=== PATIENT | male | born 1950 | race Caucasian/White ===

== ENCOUNTER 2017-08-27 17:01 | Emergency (ER) | payer OTHER ==
[2017-08-27 17:14] VITALS: BP 129/77; TEMP 98.2; BMI 37.7
[2017-08-27] MEDS ORDERED: TENIVAC IM ONE (17:51)
--- NOTE | 2017-08-27 18:08 | ED.PDOC ---
General ED Provider: Dr. JOSIAH FRANCIS Chief Complaint: Needlestick Stated Complaint: NEEDEL STICK LEFT 5TH FINGER Time Seen by Physician: 17:00 (SOURCE IS IN AN OTHER HOSPITAL) Mode of Arrival: Walk-In Information Source: Patient Exam Limitations: No limitations Primary Care Provider: STEPHANIE QUEZADA Nursing and Triage Documentation Reviewed and Agree: Yes Reviewed sepsis parameters & appropriate labs ordered?: Yes System Inflammatory Response Syndrome: Not Applicable Sepsis Protocol: For patient's 13 years and over: Temp is 96.8 and below OR 101 and greater Pulse >90 BPM Resp >20/minute Acutely Altered Mental Status Are patient's symptoms suggestive of a new infection, such as: -Pneumonia -Skin, Soft Tissue -Endocarditis -UTI -Bone, Joint Infection -Implantable Device -Acute Abdominal Infection -Wound Infection -Meningitis -Blood Stream Catheter Infection -Unknown Skin Complaint Exam - Lac/Torso/Upper Ext. Complaint/Exam Location of Injury: Left (HAND 5TH FINGER ) Mechanism of Injury: Puncture Onset/Duration: 3 HOURS AGO Symptoms Are: Still present Initial Severity: Mild Current Severity: None Aggravating: None Alleviating: None Associated Signs and Symptoms: Denies: Fever, Chills, Erythema, Numbness, Tingling Differential Diagnoses: Puncture Wound Review of Systems - Review Of Systems Constitutional: Reports: No symptoms Eyes: Reports: No symptoms Ears, Nose, Mouth, Throat: Reports: No symptoms Respiratory: Reports: No symptoms Cardiac: Reports: No symptoms GI: Reports: No symptoms : Reports: No symptoms Musculoskeletal: Reports: Other (PUNCTURE WOUND LEFT HAND ) Skin: Reports: No symptoms Neurological: Reports: No symptoms Endocrine: Reports: No symptoms Hematologic/Lymphatic: Reports: No symptoms All Other Systems: Reviewed and Negative Past Medical History - Past Medical History Previously Healthy: Yes Endocrine: Reports: None Cardiovascular: Reports: None Respiratory: Reports: None Hematological: Reports: None Gastrointestinal: Reports: None Genitourinary: Reports: None Neuro/Psych: Reports: None Musculoskeletal: Reports: None Cancer: Reports: None - Surgical History General Surgical History: Reports: None - Family History Family History: Reports: None - Social History Smoking Status: Never smoker Hx Substance Use: No Alcohol Screening: Occasionally - Immunizations Tetanus Shot up to Date: (unknown) Physical Exam - Physical Exam Appearance: Well-appearing, No pain distress, Well-nourished Eyes: VENANCIO, EOMI, Conjunctiva clear ENT: Ears normal, Nose normal, Oropharynx normal Respiratory: Airway patent, Breath sounds clear, Breath sounds equal, Respirations nonlabored Cardiovascular: RRR, Pulses normal, No rub, No murmur GI/: Soft, Nontender, No masses, Bowel sounds normal, No Organomegaly Musculoskeletal: Normal strength (PUNCTURE WOUND LEFT HAND ) Skin: Warm, Dry, Normal color Neurological: Sensation intact, Motor intact, Reflexes intact, Cranial nerves intact, Alert, Oriented Psychiatric: Affect appropriate, Mood appropriate Critical Care Note - Critical Care Note Total Time (mins): 0 Course - Course Orders, Labs, Meds: Orders Category Date Time Status HEPATITIS PANEL, ACUTE Stat LAB 08/27/17 18:01 Received HIV 4TH GENERATION Stat LAB 08/27/17 18:01 Received RPR [RAPID PLASMA REAGIN] Stat LAB 08/27/17 18:01 Received Tetanus and Diphtheria Tox/Pf [Tenivac] MEDS 08/27/17 17:51 Discontinued 0.5 ml IM .ONCE ONE Medications Discontinued Medications Generic Name Dose Route Start Last Admin Trade Name Freq PRN Reason Stop Dose Admin Tetanus/Diphtheria Toxoids Adsorbed 0.5 ml 08/27/17 17:51 08/27/17 18:02 Tenivac IM 08/27/17 17:52 0.5 ml .ONCE ONE Administration Vital Signs: Temp Pulse Resp BP Pulse Ox 08/27/17 17:01 98.2 F 72 20 129/77 94 L Departure - Departure Time of Disposition: 18:09 Disposition: HOME SELF-CARE Discharge Problem: Needle stick injury Instructions: Needle Stick Injuries (ED) Condition: Good Pt referred to PMD for follow-up: Yes IPMP verified?: No Additional Instructions: Please call your Family Physician as soon as possible to schedule a follow-up appointment. Allergies/Adverse Reactions: Allergies No Known Allergies Allergy (Unverified 08/27/17 17:59) Home Medications: Ambulatory Orders Aspirin [Aspirin EC] 81 mg PO DAILY 08/27/17 Bisoprolol Fumarate/Hctz [Ziac 10-6.25 mg] 1 tab PO DAILY 08/27/17 Cetirizine HCl [Zyrtec] 10 mg PO DAILY 08/27/17 Metoprolol Tartrate 25 mg PO DAILY 08/27/17 Cisne-3 Fatty Acids/Fish Oil [Fish Oil 1,000 mg Capsule] 1 each PO DAILY Pantoprazole Sodium [Protonix] 40 mg PO DAILY 08/27/17 Tamsulosin HCl [Flomax] 0.4 mg PO DAILY 08/27/17 Disposition Discussed With: Patient
== END 2017-08-27 18:21 | disposition home or self-care (01) ==
LOC: ED 17:01
DX: S61.237A Puncture wound without foreign body of left little finger without damage to nail, initial encounter (principal); W46.1XXA Contact with contaminated hypodermic needle, initial encounter
CPT/HCPCS: 36415; 80074; 86592; 87389; 90471; 90714; 99283